=== PATIENT | female | born 1980 | race Caucasian/White ===

== ENCOUNTER 2022-03-20 09:47 | Emergency (ER) | payer MEDICAID ==
[~2022-03-20] VITALS: Ht 149.9 cm; Wt 68.9 kg
[2022-03-20 09:49] VITALS: BP 141/68
--- NOTE | 2022-03-20 09:56 | NUR ---
PT AMBULATED TO BED 11
--- NOTE | 2022-03-20 10:00 | NUR ---
DR MEANS AT BEDSIDE FOR EVAL
--- NOTE | 2022-03-20 10:01 | NUR ---
41 Y/O FEMALE BIB SELF C/O BILATERAL UPPER BACK PAIN AND PAIN IN HER "LUNGS" X3DAYS, DENIES ANY TRAUMA/INJURY. C/O COUGH X3 WEEKS, NON-PRODUCTIVE. DENIES ANY CHEST PAIN, SOB. DENIES ANY MEDICATION FOR PAIN NKA PMH: DM, HDL
--- NOTE | 2022-03-20 10:04 | NUR ---
AMBULATED TO BATHROOM
[2022-03-20] MEDS ORDERED: ACETAMINOPHEN 325 MG TAB PO ONE (10:20)
[2022-03-20] MEDS ORDERED: KETOROLAC 15 MG/ML VIAL IM ONE (10:20)
--- NOTE | 2022-03-20 10:24 | NUR ---
X-Ray at bedside.
[2022-03-20] MEDS ORDERED: BENZ100C6 PO (10:59)
[2022-03-20] MEDS ORDERED: DICL100G5 TP (10:59)
[2022-03-20 11:04] VITALS: BP 141/68
--- NOTE | 2022-03-20 11:05 | NUR ---
Patient discharged with v/s stable. Written and verbal after care instructions ACUTE BACK PAIN AND COUGH given and explained. Patient alert, oriented and verbalized understanding of instructions. Ambulatory with steady gait. All questions addressed prior to discharge. ID band removed. Patient advised to follow up with PMD. Rx of DICOFENAC SODIUM , BENZONATATE, given. Patient educated on indication of medication including possible reaction and side effects. Opportunity to ask questions provided and answered.
== END 2022-03-20 11:05 | disposition home or self-care (01) ==
LOC: MED 09:47
DX: M54.6 Pain in thoracic spine (principal); R05.9 Cough, unspecified; E11.9 Type 2 diabetes mellitus without complications; E78.5 Hyperlipidemia, unspecified; Z79.899 Other long term (current) drug therapy
CPT/HCPCS: 71045; 81002; 81025; 96372; 99283; J1885; Q0092